=== PATIENT | female | born 1995 | race Caucasian/White ===

== ENCOUNTER 2017-07-16 12:03 | Outpatient (CLI) | payer BC | END 2017-07-16 23:59 | disposition home or self-care (01) | LOC: LAB 12:03 | PROVIDERS: ATTEND Obstetrics & Gynecology Hospice and Palliative Medicine | DX: N91.2 Amenorrhea, unspecified (principal) | CPT/HCPCS: 36415; 84702 ==

== ENCOUNTER 2018-09-14 11:54 | Emergency (ER) | payer SELFPAY ==
[~2018-09-14] VITALS: Ht 167.6 cm; Wt 73.6 kg
[2018-09-14 12:25] VITALS: BP 132/90
[2018-09-14] MEDS ORDERED: PRED10TA23 PO (13:31)
== END 2018-09-14 13:37 | disposition home or self-care (01) ==
LOC: ER 11:55
DX: L23.7 Allergic contact dermatitis due to plants, except food (principal); Z79.899 Other long term (current) drug therapy
CPT/HCPCS: 99283